=== PATIENT | male | born 1960 | race Caucasian/White ===

== ENCOUNTER 2016-06-23 16:27 | Emergency (ER) | payer OTHER ==
[~2016-06-23] VITALS: Ht 162.6 cm; Wt 79.5 kg
[~2016-06-23 16:27] MED LIST: MED4DP PO; NAPR-260 PO; OXYC-279 PO
[2016-06-23 16:29] VITALS: Ht 162.6 cm; Wt 79.5 kg
[2016-06-23] MEDS ORDERED: GABA400C PO (17:04)
[2016-06-23] MEDS ORDERED: HYDR-902 PO (17:04)
--- NOTE | 2016-06-23 17:07 | ERD ---
ER Documentation Chief Complaint Date/Time DATE: 06/23/16 TIME: 17:04 Chief Complaint SOB X 4 Days, LEG BACK AND BACK PAIN SINCE January This is a 56-year-old diabetic who is complaining of 6 months of burning pain in his legs. He has a diagnosis of peripheral neuropathy and his doctor gave him naproxen for treatment. Pain is burning and worse at night. He has no weakness or numbness or loss of bowel or bladder. He is also complaining of chronic back pain he had x-rays that show L3-L4 spondylolisthesis, but MRI looked unremarkable other than spondylolisthesis. Is also complaining of the past 3 days when he gets home from work he cannot stand to be in the house. He said being in the house makes him very anxious. He says he is having symptoms of tremors in his hands shortness of breath sense of panic and impending doom and the desire to get out of the house as soon as possible. He has no chest pain no palpitations no dizziness or syncope. ROS All systems reviewed and are negative except as per history of present illness. Medications Home Meds Active Scripts Gabapentin* (Neurontin*) 400 Mg Capsule, 400 MG PO TID, #90 CAP Prov:RODRIGUEZ YOUNGER DO 06/23/16 Hydrocodone/Acetaminophen (Ohlman 10-325 Tablet) 1 Each Tablet, 1 TAB PO Q6H Y for PAIN, #20 TAB Prov:RODRIGUEZ YOUNGER DO 06/23/16 Oxycodone HCl/Acetaminophen (Percocet 5-325 mg Tablet) 1 Each Tablet, 1 EACH PO BID, #15 TAB Prov:DEBI ROBERTS PA-C 01/17/16 Naproxen* (Naprosyn*) 500 Mg Tablet, 500 MG PO BID Y for PAIN AND/OR INFLAMMATION, #30 TAB Prov:DEBI ROBERTS PA-C 01/17/16 Methylprednisolone* (Medrol* DOSE PACK) 4 Mg/Dose-Pack Tab.ds.pk, 4 MG PO . DIRECTED, #1 PACKET Prov:DEBI ROBERTS PA-C 01/17/16 PMhx/Soc History of Surgery: No Anesthesia Reaction: No Hx Neurological Disorder: No Hx Respiratory Disorders: No Hx Cardiac Disorders: Yes (HTN, HDL) Hx Psychiatric Problems: No Hx Miscellaneous Medical Probl: Yes (DM) Hx Alcohol Use: No Hx Substance Use: No Hx Tobacco Use: No FmHx Family History: No coronary disease Physical Exam Vitals Vital Signs Date Time Temp Pulse Resp B/P Pulse Ox O2 Delivery O2 Flow Rate FiO2 06/23/16 16:29 98.6 99 20 144/69 100 Physical Exam Const: Well-developed, well-nourished Head: Atraumatic, normocephalic Eyes: Normal Conjunctiva, PERRLA, EOMI, normal sclera, no nystagmus ENT: Normal External Ears, Nose and Mouth, moist mucus membranes. Neck: Full range of motion. No meningismus, no lymphadenopathy. Resp: Clear to auscultation bilaterally, no wheezing, rhonchi, rales Cardio: Regular rate and rhythm, no murmurs, S1 S2 present Abd: Soft, non tender x 4, non distended. Normal bowel sounds, no guarding or rebound, no pulsitile abdominal masses or bruits Skin: No petechiae or rashes, no ecchymosis , no maculopapular rash Back: No midline or flank tenderness Ext: No cyanosis, or edema, FROM x 4, normal inspection, neurovascularly intact x 4, some subjective tenderness in the lower extremities bilaterally Neur: Awake and alert, STR 5/5 x 4, sensation intact x 4, no focal findings, cerebellum intact Psych: Normal Mood and Affect, but somewhat tearful Procedures/MDM The patient is having a peripheral neuropathy is not being managed very well. He is only taking NSAIDs. I will add some Neurontin and Ohlman for pain. Had extensive discussion with him about proper diet for diabetes. He is not eating the proper diet whatsoever. Patient is having some anxiety reaction. The patient is asymptomatic currently. The patient is having excessive worry about his medical problems. He says when he gets home that he starts to think about all his medical health history issues that is what triggers his sense of panic otherwise he is at work and is busy Departure Diagnosis: Primary Impression: Anxiety Additional Impression: Neuropathy Condition: Stable Patient Instructions: Anxiety Reaction, Neuropathy, Peripheral RODRIGUEZ YOUNGER DO June 23, 2016 17:07
[2016-06-23] MEDS ORDERED: ALPR0.5T PO (17:08)
== END 2016-06-23 17:24 | disposition home or self-care (01) ==
LOC: FTE 16:27
DX: F41.9 Anxiety disorder, unspecified (principal); G62.9 Polyneuropathy, unspecified; I10 Essential (primary) hypertension; E11.9 Type 2 diabetes mellitus without complications
CPT/HCPCS: 99284

== ENCOUNTER 2018-09-05 10:13 | Day surgery (SDC) | payer OTHER ==
[~2018-09-05] VITALS: Ht 162.6 cm; Wt 81.1 kg
[2018-09-05] VITALS (11 sets, daily range): BP systolic 117–157; BP diastolic 56–72; PULSE 72–82; RESP 10–18; Ht 162.6 cm; Wt 81.1 kg
[~2018-09-05 10:13] MED LIST changes: +ALPR0.5T PO; +CYCLOPENTOLATE 1% 2 ML OPH OPER SCH; +DICLOFENAC 0.1% 2.5 ML OPH OPER SCH; +GABA400C PO; +HYDR-3980 PO; +LACTATED RINGER'S 1,000 ML IV SCH; +MOXIFLOXACIN 0.5% 3 ML OPH OPER SCH; -NAPR-260 PO; +NAPR-985 PO; +PHENYLephrine 2.5% 15 ML OPH OPER SCH; +TROPICAMIDE 1% 15 ML OPH OPER SCH
[2018-09-05] MEDS ORDERED: SITA1TAB PO (11:09)
[2018-09-05] MEDS ORDERED: CHOL100062 PO (11:09)
[2018-09-05] MEDS ORDERED: ATOR40TA68 PO (11:09)
[2018-09-05] MEDS ORDERED: LISI-471 PO (11:09)
[2018-09-05] MEDS ORDERED: TETRACAINE 0.5% 4 ML OPH ONE (12:18)
[2018-09-05] MEDS ORDERED: LIDOCAINE 1% (MPF) 30 ML INJ ONE (12:18)
[2018-09-05] MEDS ORDERED: EPINEPHrine 1 MG INJ ONE (12:18)
[2018-09-05] MEDS ORDERED: TOBRAMYCIN/DEXAMETH 3.5 GM OPH OINT ONE (12:18)
[2018-09-05] MEDS ORDERED: PHENYLephrine 10% 5 ML OPH ONE (12:32)
--- NOTE | 2018-09-05 12:34 | HPN ---
Date/Time of Note Date/Time of Note DATE: 09/05/18 TIME: 12:34 Interval H&P Admission Note Pt. seen H&P reviewed: No system changes MIAN GORDON Sep 05, 2018 12:34
--- NOTE | 2018-09-05 12:36 | PREAC ---
Date/Time of Note Date/Time of Note DATE: 09/05/18 TIME: 12:35 Anesthesia Eval and Record Evaluation Time Pre-Procedure Interview DATE: 09/05/18 TIME: 12:35 Age 58 Sex male NPO: 8 hrs Preoperative diagnosis Left Eye Cataract Planned procedure Left Eye Cataract Extraction with IOL implant Past Medical History Past Medical History: Includes Cardio: HTN, Dyslipidemia Endo: Diabetes GI: Obesity Surgery & Anesthesia Issues No known issue Meds Anticoagulation: No Beta Teri within 24 hr: No Reason Beta Teri not given: Pt. not on B-Teri Reported Medications Sitagliptin Phos/Metformin HCl (Janumet 50-500 mg Tablet) 1 Each Tablet, 1 TAB PO DAILY, TAB 09/05/18 Cholecalciferol* (Vitamin D3*) 1,000 Unit Tablet, 1000 UNIT PO DAILY, TAB 09/05/18 Atorvastatin* (Atorvastatin*) 40 Mg Tablet, 40 MG PO QHS, #30 TAB 09/05/18 Lisinopril* (Lisinopril*) 20 Mg Tablet, 20 MG PO BID, #30 TAB 09/05/18 Discontinued Scripts Alprazolam* (Xanax*) 0.5 Mg Tab, 0.5 MG PO Q8H PRN for ANXIETY, #14 TAB Prov:DES YOUNGERSTNELSON A. DO 06/23/16 Gabapentin* (Neurontin*) 400 Mg Capsule, 400 MG PO TID, #90 CAP Prov:DES YOUNGERSTOLOS A. DO 06/23/16 Hydrocodone/Acetaminophen (Burke 10-325 Tablet) 1 Each Tablet, 1 TAB PO Q6H PRN for PAIN, #20 TAB Prov:RODRIGUEZ YOUNGER DO 06/23/16 Oxycodone HCl/Acetaminophen (Percocet 5-325 mg Tablet) 1 Each Tablet, 1 EACH PO BID, #15 TAB Prov:DEBI ROBERTS PA-C 01/17/16 Naproxen* (Naprosyn*) 500 Mg Tablet, 500 MG PO BID PRN for PAIN AND/OR INFLAMMATION, #30 TAB Prov:DEBI ROBERTS PA-C 01/17/16 Methylprednisolone* (Medrol* DOSE PACK) 4 Mg/Dose-Pack Tab.ds.pk, 4 MG PO . DIRECTED, #1 PACKET Prov:DEBI ROBERTS PA-C 01/17/16 Current Medications Lactated Ringer's 1,000 ml @ 25 mls/hr Q24H IV Last administered on 09/05/18at 06:00; Admin Dose 25 MLS/HR; Start 09/05/18 at 06:00; Stop 09/05/18 at 17:00 Cyclopentolate HCl (Ak-Pentolate 1% Oph) 1 drop [id number] OPER Last administered on 09/05/18at 11:15; Admin Dose 1 DROP; Start 09/05/18 at 06:00; Stop 09/05/18 at 17:00 Phenylephrine HCl (Ak-Dilate 2.5%) 1 drop [id number] OPER Last administered on 09/05/18at 11:15; Admin Dose 1 DROP; Start 09/05/18 at 06:00; Stop 09/05/18 at 17:00 Tropicamide (Mydriacyl 1%) 1 drop Q5MIN X3 OPER Last administered on 09/05/18at 11:15; Admin Dose 1 DROP; Start 09/05/18 at 06:00; Stop 09/05/18 at 17:00 Moxifloxacin HCl (Vigamox) 1 drop [id number] OPER Last administered on 09/05/18at 11:14; Admin Dose 1 DROP; Start 09/05/18 at 06:00; Stop 09/05/18 at 17:00 Diclofenac Sodium (Voltaren 0.1%) 1 drop [id number] OPER Last administered on 09/05/18at 11:14; Admin Dose 1 DROP; Start 09/05/18 at 06:00; Stop 09/05/18 at 17:00 Meds reviewed: Yes Allergies Coded Allergies: No Known Allergy (Unverified , 09/05/18) Allergies Reviewed: Yes Labs/Studies Labs Reviewed: Reviewed by anesthesiologist test: N/A Studies: ECG (n/a), CXR (n/a) Pre-procedure Exam Last vitals Vital Signs Date Temp Pulse Resp B/P (MAP) Pulse Ox O2 O2 Flow FiO2 Time Delivery Rate 09/05/18 97.5 82 16 141/56 99 Room Air 11:26 (84) Airway: Adequate mouth opening, Adequate thyromental dist Mallampati: Mallampati II Teeth: Normal Lung: Normal Heart: Normal ASA Physical Status ASA physical status: 3 Emergency: None Planned Anesthetic General/MAC: MAC Planned Pain Management Parenteral pain med Pre-operative Attestations Prior to commencing anesthesia and surgery, the patient was re-evaluated, there was verification of: *The patient's identity *The results of appropriate recent lab work and preoperative vital signs *The above evaluation not changing prior to induction *Anesthetic plan, risk benefits, alternative and complications discussed with patient/family; questions answered; patient/family understands, accepts and wishes to proceed. LENO KIMBROUGH MD Sep 05, 2018 12:36
[2018-09-05] MEDS ORDERED: MIDAZOLAM 1 MG/ML 2 ML INJ ONE (12:40)
[2018-09-05] MEDS ORDERED: FENTAnyl 50 MCG/ML VIAL ONE (12:40)
[2018-09-05] MEDS ORDERED: LABETALOL HCL 20MG INJ ONE (12:43)
[2018-09-05] MEDS ORDERED: TRYPAN BLUE 0.5 ML SYG IO ONE (12:52)
[2018-09-05] MEDS ORDERED: TIMOLOL 0.5% 5 ML OPH ONE (12:52)
[2018-09-05] MEDS ORDERED: morphine 2 MG INJ IV PRN (13:00)
[2018-09-05] MEDS ORDERED: FENTAnyl 50 MCG/ML VIAL IV PRN (13:00)
[2018-09-05] MEDS ORDERED: ONDANSETRON 4 MG INJ IV PRN (13:00)
[2018-09-05] MEDS ORDERED: LABETALOL HCL 20MG INJ IV PRN (13:00)
[2018-09-05] MEDS ORDERED: hydrALAzine 20 MG INJ IV PRN (13:00)
[2018-09-05] MEDS ORDERED: OXYCODONE/ACETAMINOPHEN (5/325) TAB PO PRN (13:00)
[2018-09-05] MEDS ORDERED: METOCLOPRAMIDE 10 MG INJ IV PRN (13:00)
--- NOTE | 2018-09-05 13:23 | PAC ---
Date/Time of Note Date/Time of Note DATE: 09/05/18 TIME: 13:23 Post-Anesthesia Notes Post-Anesthesia Note Last documented vital signs Vital Signs Date Temp Pulse Resp B/P (MAP) Pulse Ox O2 O2 Flow FiO2 Time Delivery Rate 09/05/18 97.5 82 16 141/56 99 Room Air 13:26 (84) Activity: WNL Respiratory function: WNL Cardiovascular function: WNL Mental status: Baseline Pain reasonably controlled: Yes Hydration appropriate: Yes Nausea/Vomiting absent: Yes LENO KIMBROUGH MD Sep 05, 2018 13:23
--- NOTE | 2018-09-05 13:24 | OPR ---
Date/Time of Note Date/Time of Note DATE: 09/05/18 TIME: 13:21 Operative Report Free Text/Dictation Date of Surgery: 09/05/2018 Surgeon: Mian Gordon MD PreOp Diagnosis: Cortical cataract, left eye PostOp Diagnosis: Same Implant: [id number] 22.5D Procedures: 1. Phacoemulsification and extraction of lens, left eye 2. Intraocular lens implantation, left eye Anesthesia: Monitored anesthesia care with topical anesthesia Complications: None Estimated blood loss: <1mL Description of Procedure: The patient suffers from a visually significant cataract of the left eye. After discussing the option of cataract surgery, including the risks and benefits, the patient voiced understanding and elected to proceed today. The patient was identified in the pre-op holding area where the left eye was marked. The patient was then brought to the operating room where a time out was called, identifying the patient, the procedure, and the correct site. Tetracaine eye drops were applied. The left eye was then prepped and draped in usual sterile ophthalmic fashion. An eyelid speculum was placed into the operative eye. A paracentesis was made inferiorly with a side port blade. 1% preservative free lidocaine was injected into the anterior chamber. Next, Viscoat was injected to deepen the anterior chamber. A 2.4 mm keratome was used to create a temporal corneal wound. A continuous curvilinear capsulorrhexis was started with a bent cystitome and completed with Utrata forceps. Hydrodissection was performed with a cannula and BSS and the lens was rotated. Phacoemulsification of the lens nucleus was accomplished in a [id number] technique. Remaining residual cortex was removed with irrigation and aspiration. The lens capsule was noted to be intact. Provisc was used to inflate the capsular bag. The lens was injected into the capsular bag. Viscoelastic was removed with irrigation and aspiration. The anterior chamber was filled with BSS to physiologic pressure and the wounds were hydrated and watertight. The eyelid speculum was removed and a drop of timolol and tobradex ointment were placed into the eye. A newton shield was placed over the operative eye. The patient tolerated the procedure well and was in stable condition on the way to the recovery room. MIAN GORDON Sep 05, 2018 13:24
[2018-09-05] MEDS ORDERED: TIMOLOL 0.5% 5 ML OPH LEFT EYE ONE (13:29)
[2018-09-05] MEDS ORDERED: ACETAZOLAMIDE (SR) 500 MG CAP PO ONE (13:30)
[2018-09-05] MEDS ORDERED: PHENYLephrine 10% 5 ML OPH LEFT EYE ONE (13:30)
== END 2018-09-05 15:00 | disposition home or self-care (01) ==
LOC: SDS 10:13
PROVIDERS: ATTEND Ophthalmology
DX: H25.012 Cortical age-related cataract, left eye (principal); I10 Essential (primary) hypertension; E78.5 Hyperlipidemia, unspecified; E11.9 Type 2 diabetes mellitus without complications
CPT/HCPCS: 66984; 82962; J0171; J2250; J3010; V2632